=== PATIENT | female | born 1985 | race Caucasian/White ===

== ENCOUNTER → 2016-12-08 | Outpatient (CLI) | payer OTHER ==
[~2016-12-08] MED LIST: DOCO200C7 PO; GADOBUTROL 10mMol/10ml INJECTION IV ONE; IOTHALAMATE MEGLUMINE 60% (600mg/ml) 30ml INJ IV ONE; NORMAL SALINE 50 ML IV ONE; PSEU120T80 PO
--- NOTE | 2016-12-08 10:39 | DI ---
Indication:ITS.REASON: S49.82XA INJURY TO LEFT SHOULDER Procedure:ARTHROGRAM SHOULDER LT W/FL. SHOULDER INJECTION FOR MRI ARTHROGRAM: After discussing the details of the procedure, including the risks, the patient wished to proceed. Informed consent was obtained. A preprocedural timeout was performed to confirm the correct patient and procedure. Using aseptic technique, local lidocaine anesthetic, and fluoroscopic guidance throughout, a 22-gauge infiltrating needle was directed through the rotator cuff interval and into the joint of the left shoulder using a "[id number]" technique. Due to the patient's severe iodine allergy, no iodinated contrast was utilized during this procedure. A fluoroscopic image was obtained. Following this, the patient was taken by wheelchair to MRI for her scan. Please see separate MRI report. Impression: Technically successful left intra-articular shoulder joint injection for a MRI arthrogram. Fluoroscopy dose: 1.01 mGy (Cumulative air kerma) Haris Veliz RPA/GLENNA performed this under my personal supervision. .
--- NOTE | 2016-12-08 10:47 | DI ---
Indication: ITS.REASON: S49.82XA INJURY TO LEFT SHOULDER PROCEDURE: MRI SHOULDER LEFT W/CONTRAST: Encounter: Initial Comparison: None Technique: Multiplanar multisequence MR imaging of the left shoulder was performed with intra-articular contrast. Arthrogram injection is described in a separate procedural report. Findings: The long head biceps tendon is intact and located within the bicipital groove. Subscapularis tendon is normal. The supraspinatus tendon is normal. The infraspinatus and teres minor tendons are normal. No acute fracture. Bone marrow signal intensity is normal. Acromioclavicular joint is normal. No contrast in the subacromial subdeltoid bursa. There is subtle evidence of a tiny labral tear at 12:00, best seen on coronal T1 image #10. The remainder of the labrum appears intact. Muscular bulk and signal intensity is normal. Impression: Possible tiny superior labral tear. No rotator cuff tear. .
== END ==
LOC: IMA 08:58
PROVIDERS: ATTEND Orthopaedic Surgery
DX: R93.7 Abnormal findings on diagnostic imaging of other parts of musculoskeletal system (principal)
CPT/HCPCS: 23350; 73222; 77002; A9585; J7050; Q9961